=== PATIENT | female | born 1955 | race Caucasian/White ===

== ENCOUNTER 2024-04-25 15:14 | Emergency (ER) | payer MEDICARE, MEDICAID, SELFPAY ==
[2024-04-25 15:15] VITALS: BP 149/87; PULSE 97; RESP 24; TEMP 35.9; O2SAT 99
--- NOTE | 2024-04-25 15:32 | EKG12_ITS ---
Test Reason : Blood Pressure : / mmHG Vent. Rate : 072 BPM Atrial Rate : 072 BPM P-R Int : 158 ms QRS Dur : 084 ms QT Int : 418 ms P-R-T Axes : 005 -11 -26 degrees QTc Int : 457 ms Normal sinus rhythm Minimal voltage criteria for LVH, may be normal variant ( R in aVL ) Nonspecific ST and T wave abnormality Abnormal ECG Confirmed by DANIEL MAHMOOD, SHEILA ([id number]), news video editor BABITA NAQVI ([id number]) on 04/27/2024 2:05:17 PM Referred By: Confirmed By:SHEILA SANCHEZ MD
[2024-04-25 15:39] VITALS: BMI 41.5
--- NOTE | 2024-04-25 15:39 | EDS_ITS ---
HPI History of Present Illness Chief Complaint: Hyperglycemia Informant: patient and family Narrative Narrative: Patient present secondary to hyperglycemia and not having her insulin. She is from [place]. She reportedly had injections in her knee on Friday in [place], then boarded a train and traveled to [place] to stay with family. Her luggage including all of her medical history and medications were left on the train. She does know that she takes Seroquel 100 mg at night, something for blood pressure, and insulin. She does not know her specific medications or dosing for her blood pressure medications or insulin. She has not had her insul in in about 48 hours and states that she feels like her blood sugar is too high. She reportedly was staying at some kind of a medical facility in [place] and they provided that phone number for me. I spoke with staff there but they state they do not have her medication records and we would have to call the pharmacy tomorrow when it was open. [facility] Medical History (Updated 04/25/24 @ 17:[address] Marily Copeland MD) Hypertension Diabetes mellitus Allergy/AdvReac Type Severity Reaction Status Date / Time No Known Allergies Allergy Verified 04/25/24 15:17 Social History Smoking Status: Unknown if ever smoked ROS ROS ED Constitutional Constitutional ED: Denies chills or fever(s) Eyes Eyes: Denies change in vision Cardiovascular Cardiovascular: Denies chest pain or palpitations Respiratory/Chest Respiratory/Chest: Denies cough or dyspnea Gastrointestinal Gastrointestinal: Denies abdominal pain or vomiting Musculoskeletal Musculoskeletal: Reports arthralgias Neurologic Neurologic: Reports weakness Psychiatric Psychiatric: Reports anxiety EXAM Physical Exam Const Vital Signs: 04/25/24 15:15 04/25/24 15:41 04/25/24 15:51 Temperature 96.7 F L Temperature Source Temporal Pulse Rate 97 69 Respiratory Rate 24 H 25 H Respiratory Pattern Normal Blood Pressure 149/87 H 164/86 H Blood Pressure Mean 107 112 Pulse Ox 99 98 Oxygen Delivery Method Room Air Room Air 04/25/24 17:04 Temperature Temperature Source Pulse Rate 71 Respiratory Rate 22 H Respiratory Pattern Blood Pressure 145/93 H Blood Pressure Mean 110 Pulse Ox 98 Oxygen Delivery Method Room Air Positive well nourished and well developed General Appearance ED: well developed HEENT Reports moist mucous membranes Eyes EOMs intact bilaterally Chest Wall inspection of chest normal and palpation of chest normal Resp normal respiratory effort and clear to auscultation bilaterally Cardio regular rate and regular rhythm GI non-tender Palpation: soft Extremity Extremity Narrative: Mild tenderness diffusely over the right knee. No erythema or sign of infection. Neuro oriented x3 Neuro Narrative: No focal neurologic deficit. Psych Mood & Affect: anxious MDM MDM MDM Narrative Medical decision making narrative: IV line will be established. Patient was given IV fluids. Labwork obtained to evaluate for leukocytosis, anemia, and electrolyte derangement. EKG obtained to evaluate for cardiac arrhythmia/ischemia. History & Record Review Discussion w/independent historian: Patient and Family Lab Data Attestation: I reviewed the patient's lab results. Labs: Laboratory Results - last 24 hr 04/25/24 04/25/24 15:23 15:45 WBC 9.4 RBC 4.69 Hgb 13.2 Hct 40.0 MCV 85.3 MCH 28.1 MCHC 33.0 RDW Std Deviation 40.0 RDW Coeff of Angie 13.1 Plt Count 265 MPV 10.5 Immature Gran % (Auto) 0.300 Neut % (Auto) 63.1 Lymph % (Auto) 27.4 Jay % (Auto) 6.3 Eos % (Auto) 2.3 Baso % (Auto) 0.6 Absolute Neuts (auto) 5.9 Absolute Lymphs (auto) 2.58 Nucleated RBC % 0 Sodium 137 Potassium 4.9 Chloride 105 Carbon Dioxide 23.0 Anion Gap 9 BUN 11 Creatinine 0.78 Estim Creat Clear Calc 72.31 Est GFR (MDRD) Af Amer 93 Est GFR (MDRD) Non-Af 77 BUN/Creatinine Ratio 14.0 Glucose 131 H Calcium 9.1 Total Bilirubin 0.70 Direct Bilirubin < 0.05 AST 50 H ALT 19 Alkaline Phosphatase 112 Total Protein 7.8 Albumin 3.7 Globulin 4.1 Acetone Level NEGATIVE POC Glucose 141 H EKG Initial EKG: Attestation: I personally reviewed and interpreted this EKG as follows: Interpretation: Sinus Rhythm (Sinus at 72 with nonspecific T wave flattening. No acute ST change.) Treatment and Re-Evaluation :: CBC reveals a white count of 9.4 with normal differential. Hemoglobin is 13.2. Chemistry studies are remarkable only for glucose of 131. LFTs are unremarkab le. Serum acetone is negative. Patient's blood pressure did climb up slightly to the 160s systolic. I gave her a dose of p.o. metoprolol. At this point I do not see anything that requires acute hospitalization. I have spoken with the patient and her daughter at bedside. She will call the patient's pharmacy in [place] tomorrow morning to get a current list of her medications and follow-up for prescriptions. They are comfortable with the plan. Discharge Plan Triage Chief Complaint: Hyperglycemia ED Provider: Marily Copeland Dx/Rx/DC Orders Clinical Impression: Hypertension, Diabetes Instructions: ED Diabetic Hyperglycemia, ED Hypertension, Established Primary Care Provider: Care Physician,No Primary Referrals: Care Physician,No Primary [Primary Care Provider] - Activity Restrictions/Additional Instructions: As discussed, please contact your home pharmacy tomorrow to receive a current list of your medications. Print Language: Danish Disposition Disposition: Home, Self Care
[2024-04-25 15:42] LABS: Bedside Glucose 141 mg/dL (74-106)
[2024-04-25 15:51] VITALS: BP 164/86; PULSE 69; RESP 25; O2SAT 98
[2024-04-25] MEDS: 0.9% Normal Saline (1000mL) 1,000 ML 150 ML IV (15:52)
[2024-04-25 15:56] LABS: Absolute Lymphocyte Count 2.58 X10^3/uL (0.83-4.51); Absolute Neutrophil Count 5.9 X10^3/uL (2.0-7.7); Basophil# 0.06 X10^3/uL; Basophil% 0.6 % (0-1); Eosinophil# 0.22 X10^3/uL; Eosinophils% 2.3 % (0-5); Hemoglobin 13.2 g/dL (12.0-15.0); Lymphocyte # 2.58 X10^3/ul (0.83-4.51); Lymphocyte % 27.4 % (19-41); Mean Corpuscular Hgb 28.1 pg (27.0-32.0); Mean Corpuscular Volume 85.3 fL (81-99); Mean Platelet Vol. 10.5 fl (6.2-12.0); Monocyte# 0.59 X10^3/uL; Monocyte% 6.3 % (0-10); NRBC Flagged by Analyzer 0 % (0-5); Neutrophil # 5.92 X10^3/uL (2.7-7.7); Neutrophil % 63.1 % (47-70); Platelet Count 265 K/mm3 (150-450); RBC Distribution Width CV 13.1 % (11.6-14.6); Red Blood Count 4.69 M/mm3 (4.2-5.4); White Blood Count 9.4 K/mm3 (4.4-11.0)
[2024-04-25 16:15] LABS: AST(SGOT) 50 U/L (15-37); Alanine Aminotransfer ALT/SGPT 19 U/L (13-56); Albumin, Serum 3.7 g/dL (3.2-5.0); Alkaline Phosphatase 112 U/L (45-117); Anion Gap 9 (5-15); BUN 11 mg/dL (7-18); Bilirubin, Direct < 0.05 mg/dL (0.00-0.30); Calcium,Total 9.1 mg/dL (8.5-10.1); Chloride 105 mmol/L (98-107); Creatinine, Serum 0.78 mg/dL (0.55-1.02); EST Glomerular Filtration Rate 77 mL/min (>60); Est Glom Filt Rate - Afr Amer 93 mL/min (>60); Estimated Creatinine Clearance 72.31 ml/min; Globulin 4.1 g/dL (2.2-4.2); Glucose 131 mg/dL (74-106); Potassium 4.9 mmol/L (3.5-5.1); Protein, Total 7.8 g/dL (6.4-8.2); Sodium Level 137 mmol/L (136-145)
[2024-04-25] MEDS: Metoprolol Tartrate 25 MG Tablet PO (17:03)
[2024-04-25 17:04] VITALS: BP 145/93; PULSE 71; RESP 22; O2SAT 98
== END 2024-04-25 17:50 | disposition home or self-care (01) ==
PROVIDERS: Emergency Provider Emergency Medicine; Visit Provider Emergency Medicine
DX: I10 Essential (primary) hypertension (principal); E11.65 Type 2 diabetes mellitus with hyperglycemia
CPT/HCPCS: 80048; 80076; 82009; 82962; 85025; 93005; 99283; A4216

== ENCOUNTER 2024-04-27 09:39 | Emergency (ER) | payer MEDICARE, MEDICAID, SELFPAY ==
[2024-04-27 09:40] VITALS: BP 144/111; PULSE 138; RESP 19; TEMP 36.2; O2SAT 98
--- NOTE | 2024-04-27 09:46 | EX.ED.DYSGE1 ---
HPI History of Present Illness Chief Complaint: Hyperglycemia [facility] Medical History Hypertension Diabetes mellitus Allergy/AdvReac Type Severity Reaction Status Date / Time No Known Allergies Allergy Verified 04/25/24 15:17 Social History Smoking Status: Former smoker EXAM Physical Exam Const Vital Signs: 04/27/24 09:40 04/27/24 11:31 04/27/24 11:32 Temperature 97.2 F L Temperature Source Temporal Pulse Rate 138 H 69 Respiratory Rate 19 H 20 H Respiratory Effort Normal Non-Labored Respiratory Pattern Normal Blood Pressure 144/111 H 165/98 H Blood Pressure Mean 122 120 Pulse Ox 98 98 Oxygen Delivery Method Room Air Room Air MDM MDM MDM Narrative Medical decision making narrative: HISTORY OF PRESENT ILLNESS: 69-year-old female presents with concern for elevated blood sugar. Denies any other symptoms REVIEW OF SYSTEMS: Pertinent positives: Elevated blood sugar Pertinent negatives: Headache, vomiting, nausea, chest pain, shortness of breath, fever, abdominal pain, diarrhea, increased urination, cough, fever, chills PHYSICAL EXAM: Nursing triage notes reviewed, Vital signs reviewed Constitutional: please see mdm HENT: MMM Eyes: Pupils equal round and reactive to light, Extraocular muscles intact Neck: No stridor, no JVD, full neck ROM Lungs: Clear to auscultation, No wheezing or rales. No increased work of breathing, no conversational dyspnea, no accessory muscle use, no nasal flaring. No respiratory distress noted Heart: Regular rate and rhythm, No murmurs, No rubs and No gallops, 2+ distal pulses (radial, femoral, posterior tibial) in all extremities Abdomen: Soft, there is no tenderness, rigidity, rebound or guarding, no obvious peritoneal signs, no palpable pulsatile abdominal masses, no auscultated abdominal bruit : No CVAT Extremities: No edema Neuro: No focal neurological deficits, cranial nerves II through XII intact, 5/5 strength in all extremities. Intact sensation to light touch in all extremities, 2+ reflexes bilateral patella tendons. Normal gait. No ataxia. Skin: No rash or lesions noted MEDICAL DECISION MAKING: Chief Complaint: Elevated blood sugar External records reviewed: Seen 2 days ago for similar symptoms was supposed to call her pharmacy in [place] to get medication list Factors affecting care: Type 2 diabetes, hypertension History obtained from others: Patient's daughter Consults: none [facility] Narrative: Patient was hemodynamically stable, afebrile and nontoxic-appearing. Exam without focus of infection. I considered the following differential diagnosis: Hyperglycemia, DKA, HHS Patient was not altered she had no focal deficits and no stigmata of infection ALL IMAGES (IF OBTAINED) HAVE BEEN PERSONALLY REVIEWED AND INTERPRETED BY MYSELF. EKG with a rate of 69, normal sinus rhythm, left ax deviation, no arrhythmia or ischemia CBC without leukocytosis, severe anemia, n noted mild thrombocytopenia BMP without evidence of significant electrolyte abnormalities, no anion gap, no acute kidney injury. No evidence of DKA, acetone negative, There is no clinical or lab evidence of DKA or HHS. Patient is likely suffering from her known type 2 diabetes. Glucose levels only 150 I encouraged a low-carb/keto diet until she can follow with her PCP and pharmacy to determine her home medication list. The patient and/or family, caregivers express understanding. The patient and/or family, caregivers agrees with the plan. Shared decision making: I will have a discussion with the patient and or visitors regarding risk/benefits of further testing or admission. They will be made aware of of the risk/benefits inherent in this decision they will be given the opportunity to voice understanding. Total critical care time today provided was at least 0 minutes. This excludes separately billable procedures. Critical care time (if documented) is secondary to the patient having high probability of clinically significant/life threatening deterioration in the patient's condition which required my urgent intervention. Impression: 1. Hyperglycemia 2. History of type 2 diabetes 3. Medication noncompliance 4. Thrombocytopenia Dispo: Discharge home This note was generated with [employer] dictation software. It may contain incorrect words, spelling, and punctuation that were not noted in review of the chart prior to signing. Lab Data Labs: Laboratory Results - last 24 hr 04/27/24 04/27/24 10:20 11:02 WBC 7.1 RBC 4.69 Hgb 13.0 Hct 40.1 MCV 85.5 MCH 27.7 MCHC 32.4 RDW Std Deviation 40.2 RDW Coeff of Angie 13.1 Plt Count 139 L MPV 11.7 Immature Gran % (Auto) 0.400 Neut % (Auto) 64.4 Lymph % (Auto) 24.9 [place] % (Auto) 6.6 Eos % (Auto) 3.0 Baso % (Auto) 0.7 Absolute Neuts (auto) 4.6 Absolute Lymphs (auto) 1.77 Nucleated RBC % 0 Differential Comment SCANNED Platelet Estimate SLT DEC Sodium 137 Potassium 3.7 Chloride 105 Carbon Dioxide 26.0 Anion Gap 6 BUN 13 Creatinine 0.80 Est GFR (MDRD) Af Amer 91 Est GFR (MDRD) Non-Af 76 BUN/Creatinine Ratio 16.3 Glucose 150 H Calcium 9.5 Total Bilirubin 0.60 AST 42 H ALT 23 Alkaline Phosphatase 119 H Total Protein 7.7 Albumin 3.8 Globulin 3.9 Albumin/Globulin Ratio 1.0 Acetone Level NEGATIVE Discharge Plan Triage Chief Complaint: Hyperglycemia ED Provider: [facility] Dx/Rx/DC Orders Primary Care Provider: Care Physician,No Primary Referrals: Care Physician,No Primary [Primary Care Provider] - Print Language: Macedonian
--- NOTE | 2024-04-27 10:17 | EKG12_ITS ---
Test Reason : HYPERGLYCEMIA Blood Pressure : / mmHG Vent. Rate : 069 BPM Atrial Rate : 069 BPM P-R Int : 146 ms QRS Dur : 086 ms QT Int : 402 ms P-R-T Axes : 013 -21 -15 degrees QTc Int : 430 ms Normal sinus rhythm Minimal voltage criteria for LVH, may be normal variant ( R in aVL ) Nonspecific T wave abnormality Abnormal ECG Confirmed by Mustapha Sunshine ([id number]), manager editorial HERNAN MANZANARES ([id number]) on 04/29/2024 10:05:43 AM Referred By: Confirmed By:Mustapha Sunshine
[2024-04-27 10:37] LABS: Absolute Lymphocyte Count 1.77 X10^3/uL (0.83-4.51); Absolute Neutrophil Count 4.6 X10^3/uL (2.0-7.7); Basophil# 0.05 X10^3/uL; Basophil% 0.7 % (0-1); Eosinophil# 0.21 X10^3/uL; Hematocrit 40.1 % (37-47); Lymphocyte # 1.77 X10^3/ul (0.83-4.51); Lymphocyte % 24.9 % (19-41); Mean Corp Hgb Conc 32.4 g/dL (32-36); Mean Corpuscular Hgb 27.7 pg (27.0-32.0); Mean Corpuscular Volume 85.5 fL (81-99); Mean Platelet Vol. 11.7 fl (6.2-12.0); Monocyte# 0.47 X10^3/uL; Monocyte% 6.6 % (0-10); NRBC Flagged by Analyzer 0 % (0-5); Neutrophil # 4.57 X10^3/uL (2.7-7.7); Neutrophil % 64.4 % (47-70); POSITIVE COUNT YES; Platelet Count 139 K/mm3 (150-450); RBC Distribution Width CV 13.1 % (11.6-14.6); RBC Distribution Width SD 40.2 fl (35.1-43.9); Red Blood Count 4.69 M/mm3 (4.2-5.4); White Blood Count 7.1 K/mm3 (4.4-11.0)
[2024-04-27 10:42] LABS: Differential Indicated SCAN CRITERIA MET
[2024-04-27 11:07] LABS: Differential Comment SCANNED
[2024-04-27 11:08] LABS: Platelet Estimate SLT DEC (ADEQ)
[2024-04-27 11:09] LABS: AST(SGOT) 42 U/L (15-37); Alanine Aminotransfer ALT/SGPT 23 U/L (13-56); Albumin, Serum 3.8 g/dL (3.2-5.0); Alkaline Phosphatase 119 U/L (45-117); Anion Gap 6 (5-15); BUN 13 mg/dL (7-18); BUN/Creat Ratio 16.3 RATIO (10-20); Calcium,Total 9.5 mg/dL (8.5-10.1); Chloride 105 mmol/L (98-107); EST Glomerular Filtration Rate 76 mL/min (>60); Est Glom Filt Rate - Afr Amer 91 mL/min (>60); Globulin 3.9 g/dL (2.2-4.2); Glucose 150 mg/dL (74-106); Potassium 3.7 mmol/L (3.5-5.1); Protein, Total 7.7 g/dL (6.4-8.2); Sodium Level 137 mmol/L (136-145)
[2024-04-27] MEDS: 0.9% Normal Saline (1000mL) 1,000 ML 999 ML IV (11:29)
[2024-04-27 11:32] VITALS: BP 165/98; PULSE 69; RESP 20; O2SAT 98
== END 2024-04-27 12:46 | disposition home or self-care (01) ==
PROVIDERS: Emergency Provider Emergency Medicine; Visit Provider Emergency Medicine
DX: E11.65 Type 2 diabetes mellitus with hyperglycemia (principal); Z87.891 Personal history of nicotine dependence; D69.6 Thrombocytopenia, unspecified; Z91.148 Patient's other noncompliance with medication regimen for other reason; I10 Essential (primary) hypertension
CPT/HCPCS: 36415; 80053; 82009; 85025; 93005; 99284; A4216

== ENCOUNTER → 2024-04-30 | Outpatient (CLI) | payer MEDICARE, MEDICAID, SELFPAY ==
[2024-04-30 15:48] LABS: Anion Gap 9 (5-15); BUN 18 mg/dL (7-18); BUN/Creat Ratio 24.8 RATIO (10-20); Calcium,Total 9.6 mg/dL (8.5-10.1); Chloride 105 mmol/L (98-107); Cholesterol 198 mg/dL (200); Creatinine, Serum 0.73 mg/dL (0.55-1.02); EST Glomerular Filtration Rate 84 mL/min (>60); Est Glom Filt Rate - Afr Amer 102 mL/min (>60); Glucose 108 mg/dL (74-106); High Density Lipoprotein 50 mg/dL; Potassium 3.8 mmol/L (3.5-5.1); Sodium Level 138 mmol/L (136-145); Triglycerides 149 mg/dL; Very Low Density Lipoprotein 30 mg/dL (5-40)
[2024-04-30 15:56] LABS: Hemoglobin A1c 6.1 % (3.8-5.6)
[2024-04-30 19:38] LABS: Microalbumin,Random Urine 24.5 mg/L (NO RANGE EST.)
== END | disposition home or self-care (01) ==
LOC: MFPLAB 12:03
PROVIDERS: PCP Family Medicine; Visit Provider Family Medicine
DX: E11.9 Type 2 diabetes mellitus without complications (principal)
CPT/HCPCS: 36415; 80048; 80061; 82043; 83036

== ENCOUNTER → 2024-07-13 | Outpatient (CLI) | payer MEDICARE, OTHER, SELFPAY ==
[2024-07-13 13:03] LABS: Vitamin B12 318 pg/mL (211-911)
[2024-07-13 13:26] LABS: Absolute Lymphocyte Count 1.98 X10^3/uL (0.83-4.51); Basophil# 0.05 X10^3/uL; Basophil% 0.6 % (0-1); Eosinophil# 0.35 X10^3/uL; Eosinophils% 4.4 % (0-5); Hemoglobin 13.7 g/dL (12.0-15.0); Lymphocyte # 1.98 X10^3/ul (0.83-4.51); Lymphocyte % 24.9 % (19-41); Mean Corp Hgb Conc 32.6 g/dL (32-36); Mean Corpuscular Hgb 27.9 pg (27.0-32.0); Mean Corpuscular Volume 85.5 fL (81-99); Mean Platelet Vol. 11.2 fl (6.2-12.0); Monocyte# 0.58 X10^3/uL; Monocyte% 7.3 % (0-10); NRBC Flagged by Analyzer 0 % (0-5); Neutrophil # 4.96 X10^3/uL (2.7-7.7); Neutrophil % 62.5 % (47-70); Platelet Count 296 K/mm3 (150-450); RBC Distribution Width CV 13.2 % (11.6-14.6); RBC Distribution Width SD 40.8 fl (35.1-43.9); Red Blood Count 4.91 M/mm3 (4.2-5.4); White Blood Count 7.9 K/mm3 (4.4-11.0)
[2024-07-13 13:42] LABS: AST(SGOT) 20 U/L (15-37); Alanine Aminotransfer ALT/SGPT 20 U/L (13-56); Albumin, Serum 3.7 g/dL (3.2-5.0); Alkaline Phosphatase 107 U/L (45-117); Anion Gap 9 (5-15); BUN 33 mg/dL (7-18); Calcium,Total 9.9 mg/dL (8.5-10.1); Chloride 108 mmol/L (98-107); EST Glomerular Filtration Rate 52 mL/min (>60); Est Glom Filt Rate - Afr Amer 63 mL/min (>60); Ferritin 159 ng/mL (8-252); Globulin 3.8 g/dL (2.2-4.2); Glucose 124 mg/dL (74-106); Magnesium 2.2 mg/dL (1.6-2.6); Potassium 4.4 mmol/L (3.5-5.1); Protein, Total 7.5 g/dL (6.4-8.2); Sodium Level 139 mmol/L (136-145)
== END | disposition home or self-care (01) ==
LOC: VSLAB 09:12
PROVIDERS: PCP Family Medicine; Visit Provider Family Medicine
DX: R25.1 Tremor, unspecified (principal); R61 Generalized hyperhidrosis
CPT/HCPCS: 36415; 80053; 82607; 82728; 83735; 84443; 85025

== ENCOUNTER → 2024-08-11 | Outpatient (CLI) | payer MEDICARE, OTHER, SELFPAY ==
[2024-08-11 13:18] LABS: BUN 14 mg/dL (7-18); BUN/Creat Ratio 13.7 RATIO (10-20); Calcium,Total 9.9 mg/dL (8.5-10.1); Chloride 103 mmol/L (98-107); Creatinine, Serum 1.02 mg/dL (0.55-1.02); EST Glomerular Filtration Rate 57 mL/min (>60); Est Glom Filt Rate - Afr Amer 69 mL/min (>60); Glucose 118 mg/dL (74-106); Phosphorus 3.5 mg/dL (2.5-4.9); Potassium 4.6 mmol/L (3.5-5.1); Sodium Level 134 mmol/L (136-145)
== END | disposition home or self-care (01) ==
LOC: VSLAB 09:55
PROVIDERS: PCP Family Medicine; Visit Provider Family Medicine
DX: R94.4 Abnormal results of kidney function studies (principal)
CPT/HCPCS: 36415; 80069

== ENCOUNTER → 2024-10-26 | Outpatient (CLI) | payer MEDICARE, SELFPAY ==
--- NOTE | 2024-10-26 12:19 | EKG12_ITS ---
Test Reason : Blood Pressure : */* mmHG Vent. Rate : 54 BPM Atrial Rate : 54 BPM P-R Int : 154 ms QRS Dur : 84 ms QT Int : 434 ms P-R-T Axes : 4 -7 6 degrees QTcB Int : 411 ms Sinus bradycardia Minimal voltage criteria for LVH, may be normal variant Borderline ECG Confirmed by Mustapha Sunshine ([id number]), newspaper editor managing HERNAN MANZANARES ([id number]) on 10/27/2024 5:50:24 AM Referred By: Jenny Olmos Confirmed By: Mustapha Sunshine
== END | disposition home or self-care (01) ==
LOC: PSN 12:18
PROVIDERS: PCP Family Medicine; Referring Provider Family Medicine; Visit Provider Family Medicine
DX: R07.9 Chest pain, unspecified (principal)
CPT/HCPCS: 93005

== ENCOUNTER → 2024-11-03 | Outpatient (CLI) | payer MEDICARE, SELFPAY ==
[2024-11-03 13:08] LABS: Vitamin B12 390 pg/mL (211-911)
[2024-11-03 13:26] LABS: Microalbumin,Random Urine 18.8 mg/L (NO RANGE EST.)
[2024-11-03 13:39] LABS: ALB/GLOB Ratio 1.1 RATIO (0.9-2.4); AST(SGOT) 13 U/L (15-37); Alanine Aminotransfer ALT/SGPT 18 U/L (13-56); Alkaline Phosphatase 115 U/L (45-117); Anion Gap 4 (5-15); BUN 16 mg/dL (7-18); BUN/Creat Ratio 18.5 RATIO (10-20); Calcium,Total 9.3 mg/dL (8.5-10.1); Chloride 108 mmol/L (98-107); Cholesterol 175 mg/dL (200); Creatinine, Serum 0.87 mg/dL (0.55-1.02); EST Glomerular Filtration Rate 68 mL/min (>60); Est Glom Filt Rate - Afr Amer 83 mL/min (>60); Globulin 3.7 g/dL (2.2-4.2); Glucose 99 mg/dL (74-106); High Density Lipoprotein 64 mg/dL; Magnesium 2.1 mg/dL (1.6-2.6); Potassium 4.1 mmol/L (3.5-5.1); Protein, Total 7.7 g/dL (6.4-8.2); Sodium Level 140 mmol/L (136-145); Triglycerides 117 mg/dL; Very Low Density Lipoprotein 23 mg/dL (5-40)
[2024-11-03 14:20] LABS: Hemoglobin A1c 5.8 % (3.8-5.6)
== END | disposition home or self-care (01) ==
LOC: VSLAB 09:43
PROVIDERS: PCP Family Medicine; Visit Provider Family Medicine
DX: E11.69 Type 2 diabetes mellitus with other specified complication (principal); M62.81 Muscle weakness (generalized)
CPT/HCPCS: 36415; 80053; 80061; 82043; 82607; 83036; 83735; 84443

== ENCOUNTER → 2024-11-11 | Outpatient (CLI) | payer MEDICARE, SELFPAY ==
--- NOTE | 2024-11-11 12:48 | STE_ITS ---
Reason For Study: Chest Pain Stress Results Protocol: Orion Protocol Maximum Predicted HR: 149 bpm Target HR: 127 bpm % Maximum Predicted HR: 104 % DurationHeart Rate Stage (mm:ss) (bpm) BP Comment Baseline 69 148/80No Chest Pain Orion Protocol Stage I 3:00 85 170/72No Chest Pain; Severe Dyspnea Orion Protocol Stage II 0:16 155 / No Chest Pain; Severe Dyspnea Recovery 85 130/68No Chest Pain; No Dyspnea Stress Duration: 3:16 mm:ss Maximum Stress HR: 155 bpm METS: 4 Baseline Echocardiogram Findings Stress Echo Wall motion Data Resting WM Intermediate WM Stress WM ECHO/Stress Test Echo w/o Contrast Interpretation Summary Exercise stress echo. 69-year-old lady with a history of coronary risk factors. Resting EKG demonstrates sinus rhythm with a rate of 75 bpm normal intervals ar e noted resting blood pressure is 148/80 mmHg. The patient exercised according to regular Orion socorro col for a total duration of 3 minutes and 16 seconds. The maximum heart rate attained was 155 b pm which was 104% of max impacted heart rate the maximum workload was 4.6 metabolic equivalents. At rest there were nonspecific ST changes noted. No meet the criteria for ischemia at peak exercis e nonspecific ST changes were noted. No major criteria for ischemia. No chest pain was noted how ever the patient was noted to be severely short of breath with exertion necessitating termination of the test. The peak blood pressure is 170/72 mmHg rate-pressure product of 26,300. Stress echocardiogram. The resting echocardiogram demonstrated overall preserved low ventricular systo lic function estimated at 60%. At peak exercise there was worsening of wall motion noted in the inferior and inferior septal rudolph and mid inferior wallsAs well as the basal inferior wall suggestive of ischemia in this territory at a low workload. Conclusion: Exercise stress echocardiogram with mid inferior, basal inferior, and inferior septal ischemia noted at a low workload. Ordering Physician: Jenny Olmos Referring Physician: Jenny Olmos Performed By: Dena Barraza RCS
== END | disposition home or self-care (01) ==
PROVIDERS: PCP Family Medicine; Referring Provider Family Medicine; Visit Provider Family Medicine
DX: R07.9 Chest pain, unspecified (principal)
CPT/HCPCS: 93017; 93350

== ENCOUNTER 2025-08-30 08:48 | Emergency (ER) | payer MEDICARE, SELFPAY ==
[2025-08-30 08:49] VITALS: BP 144/66; PULSE 59; RESP 20; TEMP 36.6; O2SAT 100
[2025-08-30 09:00] VITALS: BP 146/76; PULSE 61; RESP 20; O2SAT 95; BMI 35.3
--- NOTE | 2025-08-30 09:07 | EDS_ITS ---
HPI History of Present Illness Chief Complaint: Hypertension Narrative Narrative: 70-year-old female past medical history of hypertension, on medication, presents with elevated blood pressure reading for the last 2 days. She states that her blood pressure readings at home in the morning have slowly been creeping up. Today, she became concerned when she had a reading of 160/100. However, she does have history of anxiety as well. She denies any symptoms with this, no chest pain or shortness of breath, no headache. She states she will change the batteries in her blood pressure cuff at home. She had it checked at an outside facility and it was only 140 systolic. [facility] Medical History Hypertension Diabetes mellitus Allergy/AdvReac Type Severity Reaction Status Date / Time No Known Allergies Allergy Verified 08/30/25 08:50 Social History Smoking Status: Former smoker ROS ROS ED ROS Narrative Review of systems is positive for elevated blood pressure reading. Denies any symptoms, asymptomatic elevated blood pressure reading without chest pain, no shortness of breath, no swelling, no exacerbating or alleviating factors. EXAM Physical Exam Narrative Exam Narrative: Afebrile. Vital signs noted. Nontoxic-appearing. Cardiovascular semination reveals a regular rate and rhythm. Lungs are clear to auscultation bilaterally. Abdomen is soft and nontender with out guarding or rebound. Positive bowel sounds. Neurological examination nonfocal, nonlateralizing. Mild anxiety. Const Vital Signs: 08/30/25 08:49 08/30/25 09:00 08/30/25 09:01 Temperature 98 F Temperature Source Temporal Pulse Rate 59 L 61 Respiratory Rate 20 H 20 H Respiratory Effort Normal Non-Labored Respiratory Pattern Normal Blood Pressure 144/66 H 146/76 H Blood Pressure Mean 92 99 Pulse Ox 100 95 Oxygen Delivery Method Room Air MDM MDM MDM Narrative Medical decision making narrative: I do not feel that differential diagnosis is applicable here. I do not feel she requires any imaging or blood work as she is asymptomatic with her reported elevated blood pressure reading. She had readings here of 144/66 and 146/76 which is borderline. She was reassured. At this point in time, as she is asymptomatic, she was told to continue her medications and follow-up with her primary care provider. She is motivated for discharge. As her medical screening examination is negative for any emergent process, I feel she can be discharged to follow-up. Return instructions to the emergency department were reviewed. Disposition is discharged home in stable condition. History & Record Review Discussion w/independent historian: Patient Discharge Plan Triage Chief Complaint: Hypertension ED Provider: Shantanu Brandt Dx/Rx/DC Orders Clinical Impression: Elevated blood pressure reading with diagnosis of hypertension, Encounter for medical screening examination Instructions: ED High Blood Pressure Hypertension, ED Screening Exam Medical Nonurgent Primary Care Provider: Jenny Olmos Referrals: Jenny Olmos, DO [Primary Care Provider, Family Practice] - 1-2 Days if not improving Activity Restrictions/Additional Instructions: Continue to keep a log of your blood pressures for your primary care provider. Medication as directed. Return with sustained elevated blood pressure readings, chest pain, shortness of breath, new or worsening symptoms. Your blood pressure today in the emergency department was 144/66 and 146/76 which is acceptable. Print Language: [place] Islander Disposition Disposition: Home, Self Care
[2025-08-30 09:19] VITALS: BP 125/58; PULSE 59; RESP 14; TEMP 36.6; O2SAT 98
== END 2025-08-30 09:19 | disposition home or self-care (01) ==
LOC: ED 09:16
PROVIDERS: Emergency Provider Emergency Medicine; PCP Family Medicine; Visit Provider Emergency Medicine
DX: I10 Essential (primary) hypertension (principal); E11.9 Type 2 diabetes mellitus without complications; Z87.891 Personal history of nicotine dependence
CPT/HCPCS: 99282

== ENCOUNTER → 2025-09-01 | Outpatient (CLI) | payer MEDICARE, SELFPAY ==
[2025-09-01 12:23] LABS: Hematocrit 41.1 % (37-47); Hemoglobin 14.1 g/dL (12.0-15.0); Immature Granulocytes Count 0.030 X10^3/uL (0.0-0.0); Mean Corp Hgb Conc 34.3 g/dL (32-36); Mean Corpuscular Volume 88.2 fL (81-99); Mean Platelet Vol. 10.7 fl (6.2-12.0); NRBC Flagged by Analyzer 0 % (0-5); Platelet Count 279 K/mm3 (150-450); RBC Distribution Width CV 12.5 % (11.6-14.6); RBC Distribution Width SD 40.2 fl (35.1-43.9); Red Blood Count 4.66 M/mm3 (4.2-5.4); White Blood Count 7.8 K/mm3 (4.4-11.0)
[2025-09-01 13:01] LABS: Microalbumin,Random Urine 14.0 mg/L (<20 mg/L)
[2025-09-01 15:20] LABS: Cholesterol 162 mg/dL (<=200); Low Density Lipoprotein Calc. 70 mg/dL; Triglycerides 139 mg/dL; Very Low Density Lipoprotein 28 mg/dL (5-40); Vitamin B12 457 pg/mL (180-914); cholesterol:hdl ratio screen 2.54
[2025-09-01 16:05] LABS: AST(SGOT) 22 U/L (<=31); Alanine Aminotransfer ALT/SGPT 14 U/L (<=34); Albumin, Serum 4.4 g/dL (3.4-4.8); Alkaline Phosphatase 98 U/L (35-104); Anion Gap 10 (5-15); BUN 16 mg/dL (4-19); BUN/Creat Ratio 19.4 RATIO (10-20); Calcium,Total 9.8 mg/dL (7.6-11.0); Carbon Dioxide 27.3 mmol/L (21.0-32.0); Chloride 103 mmol/L (98-108); Globulin 2.8 g/dL (2.2-4.2); Glucose 153 mg/dL (70-99); Potassium 5.0 mmol/L (3.3-5.1)
== END | disposition home or self-care (01) ==
PROVIDERS: PCP Family Medicine; Visit Provider Family Medicine
DX: I10 Essential (primary) hypertension (principal); E11.9 Type 2 diabetes mellitus without complications; E78.2 Mixed hyperlipidemia; E53.8 Deficiency of other specified B group vitamins; D69.6 Thrombocytopenia, unspecified
CPT/HCPCS: 36415; 80053; 80061; 82043; 82607; 83036; 84443; 85025